=== PATIENT | male | born 1955 ===

== ENCOUNTER 2019-01-26 10:17 | Emergency (ER) | payer SELFPAY ==
[2019-01-26 10:29] VITALS: TEMP 98.1; O2SAT 98
--- NOTE | 2019-01-26 14:30 | C.PDOC ---
History Of Present Illness 63 year old male presents to the emergency department via ambulance after being found sleeping outside [employer]. Patient reports to drinking "a lot". Patient offers no complaints at this time and is looking for a place to sleep. Time Seen by Provider: 01/26/19 10:26 Chief Complaint (Nursing): Substance Abuse History Per: Patient History/Exam Limitations: no limitations Onset/Duration Of Symptoms: Hrs Current Symptoms Are (Timing): Still Present Suicide/Self Injury Attempted (Context): None Modifying Factor(s): Alcohol Associated Symptoms: denies: Suicidal Thoughts, Suicidal Plan Past Medical History Reviewed: Historical Data, Nursing Documentation, Vital Signs Vital Signs: Last Vital Signs Temp 98.1 F 01/26/19 10:21 Pulse 72 01/26/19 10:21 Resp 16 01/26/19 10:21 BP 137/89 01/26/19 10:21 Pulse Ox 98 01/26/19 10:21 Primary Care Provider: FAMILY PROVIDER,NO - Medical History PMH: No Chronic Diseases Surgical History: No Surg Hx Family History: States: No Known Family Hx - Social History Hx Alcohol Use: Yes Hx Substance Use: No - Immunization History Hx Tetanus Toxoid Vaccination: No Hx Influenza Vaccination: No Hx Pneumococcal Vaccination: No Review Of Systems Review Of Systems: ROS cannot be obtained secondary to pt's inabilty to answer questions. Physical Exam - Physical Exam Appears: Non-toxic, No Acute Distress, Unkempt Skin: Warm, Dry Head: Atraumatic, Normacephalic Eye(s): bilateral: Normal Inspection Oral Mucosa: Moist, Other Neck: Normal, Supple Chest: Symmetrical, No Tenderness Cardiovascular: Rhythm Regular, No Murmur Respiratory: Normal Breath Sounds, No Rales, No Rhonchi, No Wheezing Gastrointestinal/Abdominal: Soft, No Tenderness, No Guarding, No Rebound Extremity: Normal ROM Neurological/Psych: Oriented x3, Normal Speech, Normal Cognition ED Course And Treatment O2 Sat by Pulse Oximetry: 98 (RA) Pulse Ox Interpretation: Normal Medical Decision Making Medical Decision Making: Plan: Glucose POC Disposition Counseled Patient/Family Regarding: Diagnosis, Need For Followup - Disposition Referrals: [facility] [Outside] Disposition: HOME/ ROUTINE Disposition Time: 14:46 Condition: IMPROVED Instructions: Alcohol Abuse and Alcoholism (DC) Forms: [employer] ([place]), General Discharge Instructions - Clinical Impression Clinical Impression: Alcohol intoxication - Scribe Statement The provider has reviewed the documentation as recorded by the Scribe (Cesar Roberson) Provider Attestation: All medical record entries made by the Scribe were at my direction and personal ly dictated by me. I have reviewed the chart and agree that the record accurately reflects my personal performance of the history, physical exam, medical decision making, and the department course for this patient. I have also personally directed, reviewed, and agree with the discharge instructions and disposition.
[2019-01-26 14:50] VITALS: BP 114/70; PULSE 70; RESP 18
== END 2019-01-26 14:50 | disposition home or self-care (01) ==
LOC: C.ER 10:17
DX: F10.129 Alcohol abuse with intoxication, unspecified (principal)